=== PATIENT | female | born 1965 | race Caucasian/White ===

== ENCOUNTER → 2016-08-13 | Outpatient (CLI) | payer OTHER ==
--- NOTE | 2016-08-15 12:45 | MAM ---
EXAM DESCRIPTION: MAMMO BREAST SCREENING BILATERAL CAD, images were reviewed with CAD technology, R2 computer-aided detection. CLINICAL HISTORY: [facility]. COMPARISON: 2013 and 2014 FINDINGS: Routine views are obtained. Scattered glandular pattern has increased mammographic density with new focal mammographic asymmetry right breast 4 o'clock 4-5 cm from the nipple. No associated microcalcifications or architectural distortion.. IMPRESSION: Incomplete study. BIRAD CATEGORY: 2 BENIGN RECOMMENDATIONS: FOLLOW-UP: True lateral view right breast with spot compression films and directed ultrasound if indicated. According to the [employer], yearly mammograms are recommended starting at age 40 and continuing as long as a woman is in good health. Any breast change noted on a breast self-exam should be reported promptly to the patient's healthcare provider. Breast MRI is recommended for women with an approximately 20-25% or greater lifetime risk of breast cancer, including women with a strong family history of breast or ovarian cancer and women who have been treated for Hodgkin's disease. Electronically signed by: Monserrat Mejia 08/15/2016 12:43
== END ==
LOC: MAMMO 08:00
PROVIDERS: ATTEND Family Medicine
DX: Z12.31 Encounter for screening mammogram for malignant neoplasm of breast (principal)

== ENCOUNTER → 2016-10-21 | Outpatient (CLI) | payer OTHER ==
--- NOTE | 2016-10-22 11:52 | MAM ---
EXAM DESCRIPTION: Diagnostic Mammo, right CLINICAL HISTORY: 50 yearsFemaleABNORMAL MAMMO. Lower inner quadrant right breast. COMPARISON: Digital screening bilateral examination 08/13/2016. TECHNIQUE: Digital full field right breast images CC, MLO, and LM projections. CAD was utilized. FINDINGS: The breast parenchymal density pattern is: Scattered fibroglandular densities. No focal asymmetry in the region of interest at the 400 clock position of the right breast in the middle third, 4.5 cm from the nipple. No mass density or abnormal calcifications. No skin thickening or nipple retraction. Right axillary lymph nodes. IMPRESSION: BIRAD CATEGORY: 2 BENIGN. Follow-up: Return to routine digital screening bilateral mammographic examination, one year interval from August 2016. The results and follow-up were discussed in person with the patient. Communication explaining the results and followup will be mailed to the patient and referring care provider. According to the [employer], yearly mammograms are recommended starting at age 40 and continuing as long as a woman is in good health. Any breast change noted on a breast self-exam should be reported promptly to the patient's healthcare provider. Breast MRI is recommended for women with an approximately 20-25% or greater lifetime risk of breast cancer, including women with a strong family history of breast or ovarian cancer and women who have been treated for Hodgkin's disease. A negative mammographic report should not delay tissue diagnosis in patients with significant clinical history or physical findings. Extremely dense breast tissue limits the sensitivity of digital mammography. Electronically signed by: Elias Anderson MD 10/22/2016 11:51 AM CDT
== END | disposition home or self-care (01) ==
LOC: MAMMO 10:30
PROVIDERS: ATTEND Family Medicine
DX: R92.8 Other abnormal and inconclusive findings on diagnostic imaging of breast (principal)

== ENCOUNTER → 2018-12-13 | Outpatient (CLI) | payer OTHER ==
--- NOTE | 2018-12-13 20:24 | MAM ---
EXAM DESCRIPTION: 3D Diagnostic, Bilateral (accession [id number]), Breast,Right (accession [id number]): Ultrasound CLINICAL HISTORY: 53 yearsFemaleABN CBE. . Probable mass lower outer quadrant posterior right breast. No personal history of breast cancer. Remote family history of breast cancer. No childbirth. Postmenopausal 5 years. No HRT Lifetime risk of developing breast cancer (Tyrer-Cuzick model)(%): 9.7. COMPARISON: Right breast 2-D diagnostic mammographic examination 10/22/2016. TECHNIQUE: Bilateral LM, CC, and MLO projection full-field images, digital mammographic tomosynthesis technique. Bilateral 2-D digital full-field MLO and exaggerated right CC images. Also exaggerated right CC image with tomosynthesis. CAD not utilized. . Transcutaneous scanning of the right breast utilizing esteves-scale and Doppler modes. Scanning performed by the client service professional and Dr. Anderson. FINDINGS: The breast parenchymal density pattern is: Scattered areas of fibroglandular density. No skin thickening or nipple retraction skin marker were palpable abnormality located posterior right breast lateral near the chest wall approximately 8:30 to 9:00 position. No mammographic abnormality at this location. Right breast axillary lymph nodes. Bilateral solitary microcalcifications. No new focal, stellate mass or density, focal asymmetry , and no suspicious microcalcifications bilaterally. Ultrasound: Scanning at the 7:00 to 10:00 sector of the right breast posteriorly near the chest wall, centimeters from the nipple. Heterogeneous fatty and fibroglandular echotexture is. No dominant solid mass or distinct cyst. No parenchymal edema or overlying skin changes. No large calcifications. No abnormal vascularity. IMPRESSION: Benign exam. BIRAD CATEGORY: 2 BENIGN FINDINGS. RECOMMENDATIONS: FOLLOW UP: Return to routine digital bilateral mammographic screening, one year interval from December 2018. Written communication explaining the IMPRESSION and follow-up, will be mailed to the patient and referring health care provider. The FINDINGS and the FOLLOW-UP plan were reviewed in person with the patient after the examination. According to the [employer], yearly mammograms are recommended starting at age 40 and continuing as long as a woman is in good health. Any breast change noted on a breast self-exam should be reported promptly to the patient's healthcare provider. Breast MRI is recommended for women with an approximately 20-25% or greater lifetime risk of breast cancer, including women with a strong family history of breast or ovarian cancer and women who have been treated for Hodgkin's disease. A negative mammographic report should not delay tissue diagnosis in patients with significant clinical history or physical findings. Extremely dense breast tissue limits the sensitivity of digital mammography. Electronically signed by: Elias Anderson MD 12/13/2018 8:22 PM CDT
== END ==
LOC: US 11:00
PROVIDERS: ATTEND Family Medicine
DX: N63.10 Unspecified lump in the right breast, unspecified quadrant (principal); N63.20 Unspecified lump in the left breast, unspecified quadrant
CPT/HCPCS: 76641; 77066; G0279